=== PATIENT | female | born 1975 | race Caucasian/White ===

== ENCOUNTER → 2016-03-18 | Outpatient (CLI) | payer BC ==
[~2016-03-18] MED LIST: ALBU8CC IH; ESCI10TA PO
[2016-03-19 15:34] VITALS: BP 109/67
--- NOTE | 2016-03-19 15:34 | Urgent Care T Sheet Gen (E) ---
Intake General Temperature (Fahrenheit): 98.6 Pulse: 78 Blood Pressure Systolic: 109 Blood Pressure Diastolic: 67 Respirations: 16 SPO2: 99 Weight (Pounds): 158 Chief Complaint: fever, cough Source: Patient Exam Limitations: No limitations History of Present Illness Initial Comments Pt reports she began having a cough a couple days ago, but she is now concerned because she has had fevers, chills, and malaise with it, and coughing is hard enough to give her chest some pain and she sometimes feels short of breath. She is worried she may be starting pneumonia. She has had a sore throat from coughing, but denies any runny nose, sinus congestion, or ear pressure. Onset & Duration: Days (2-3) Timing: Still present Severity: Moderate Associated Symptoms: Fever/Chills, Malaise Similar Sympotms Previously: No Allergies: Coded Allergies: Demerol (Unverified Allergy, Unknown, 03/19/16) Home Meds Active Scripts Albuterol Sulfate (Ventolin HFA)90 Mcg/1 Puff [email or web address] Mcg IH every 2 to 4 hours PRN shortness of breath #1 INHALER Ref 1 Inhale 1 dose every 2-4 hours as needed for shortness of breath Prov:MARSHA ARREOLA 03/18/16 Reported Medications Escitalopram Oxalate (Lexapro)10 Mg Exixiv08 Mg PO DAILY 03/19/16 Respiratory Constitutional Symptoms: See HPI Chills Fever Malaise EENTM: See HPINo Eye pain, No Ear pain, No Nose Pain, No Nose Congestion, Throat painNo Mouth Pain Respiratory: See HPI Cough Short of breathNo Wheezing Cardiovascular: No symptoms reported Gastrointestinal/Abdominal: No symptoms reported Genitourinary: No symptoms reported Skin: No symptoms reported Neurological: No symptoms reported Immunologic/Allergies: No symptoms reported All Other Systems Reviewed Remaining Systems: All other systems reviewed with negative findings Physical Exam Physical Exam General Appearance: WD/WN No apparent distress Eyes, Ears, Nose, Throat Ex: PERRL/EOMI Pharyngeal erythema (with clear drainage present)No Tonsillar exudate, Other (TMs bulging bilaterally with clear fluid present; nasal turbinates mildly swollen with clear mucus present ; no sinus tenderness to palpation in maxillary and frontal sinuses) Neck Exam: Non tender Full range of motion Supple Normal inspection Normal thyroid Respiratory Exam: Chest non-tender Lungs clear Normal breath sounds No respiratory distress Other (very occasional rough breath sounds in bases, cleared easily with coughing; no decreased breath sounds noted throughout [place] ) Cardiovascular Exam: Regular rate, rhythm No murmur Neurologic/Psychiatric Exam: Oriented times 4 Mood/affect nml Lymphatic Exam: Other (anterior cervical adenopathy bilateral, mild, fluctuant , nontender) Departure Urgent Care Impression Chief Complaint: fever, cough Impression: Primary Impression: Upper respiratory infection, acute Additional Impression: Bronchitis Departure Disposition: 01 HOME OR SELF-CARE Condition: Stable Additional Instructions: Discussed with pt that she does seem to have a upper respiratory infection but I do not think it is bacterial at this point. She can use OTC medications such as Mucinex, rest, and push fluids. Her lungs actually sound almost entirely clear, despite the cough and malaise, but I understand her concern with the coming storm. If she is feeling more short of breath despite this treatment, I suggest trying an albuterol inhaler as needed, as her bronchial passages may be irritated as well. If not improving by the end of the week, or if worsening with fever/chills, increased cough, increased sore throat, rash, or other concerning symptoms, she should follow up for consideration of antibiotics at that time. Pt states understanding and agrees to plan. All questions answered. Scripts Albuterol Sulfate (Ventolin HFA)90 Mcg/1 Puff Hfa.[id number] Mcg IH every 2 to 4 hours PRN shortness of breath #1 INHALER Ref 1 Inhale 1 dose every 2-4 hours as needed for shortness of breath Prov:MARSHA ARREOLA 03/18/16 End of report . MARSHA ARREOLA Mar 18, 2016 12:09
== END ==
LOC: MHUC 11:13
PROVIDERS: ATTEND Physician Assistant Medical
DX: J06.9 Acute upper respiratory infection, unspecified (principal); J40 Bronchitis, not specified as acute or chronic
CPT/HCPCS: 99213